=== PATIENT | male | born 1955 | race Caucasian/White ===

== ENCOUNTER → 2016-11-16 | Outpatient (CLI) | payer OTHER ==
[~2016-11-16] MED LIST: 'PARAFON FORTE500 M1 PO; ASPI-COR81 M1 PO; ATENOLOL25 MG PO; FEROSUL325 MG PO; FLEXERIL10 MG PO; HYDROCODONE BIT1 T11 PO; LISINOPRIL5 MG PO; MULTIPLE VITAMI1 CAP PO; NORCO 325 MG-51 TAB PO; NOVOLIN N100 U/ML SC; NOVOLIN R100 U/ML IJ; NOVOLIN R100 U/ML SC; PLAVIX75 MG PO; PRAVACHOL40 MG PO; TENORMIN25 MG PO
== END | disposition home or self-care (01) ==
LOC: US 02:31
DX: I73.9 Peripheral vascular disease, unspecified (principal); E11.9 Type 2 diabetes mellitus without complications; I10 Essential (primary) hypertension; F17.200 Nicotine dependence, unspecified, uncomplicated

== ENCOUNTER 2016-12-13 16:25 | Inpatient (IN) | payer OTHER ==
[~2016-12-13] VITALS: Ht 162.5 cm; Wt 57.3 kg
--- NOTE | ~2016-12-13 | ST ---
[place], [place] EXERCISE STRESS TEST REPORT [id number] UNIT #: [id number] ROOM: 403 DOCTOR: ALLYSSA MENDOZA MD BIRTHDATE: [birth year] DOS: LEXISCAN STRESS TEST Baseline cardiogram, sinus rhythm with ST depressions in the inferior and lateral leads, 0.4 mg of Lexiscan, duration of 10 seconds, 1 minute orthodoxy. No new EKG changes. No chest discomfort. Blood pressure and heart rate response was normal. Nuclear images will be reported separately. ALLYSSA MENDOZA MD CM:STRESS:EXERCISE STRESS TEST REPORT [id number] ALLYSSA MENDOZA MD
--- NOTE | ~2016-12-13 | CON ---
[place], [place] REPORT OF CONSULTATION NAME: JENNY SHAH UNIT #: [id number] ROOM: 403 DOCTOR: REJI LIEBERMANALLYSSA BIRTHDATE: [birth year] DOS: HISTORY OF PRESENT ILLNESS: The patient is very well known to me with severe peripheral arterial disease and has had a subtotal occlusion of the superficial femoral artery. An attempt was made to do the intervention, but unable to cross the lesion. The patient is scheduled for a fem-pop bypass surgery. Known history of bypass surgery also in the past. The patient came in with significant left-sided precordial chest discomfort, rated the pain as 6/10. The patient had some nonspecific ST-T abnormalities. Cardiac enzymes have been negative so far. The patient was asymptomatic during his last hospitalization admission. PAST MEDICAL HISTORY: Significant for severe coronary artery disease, peripheral arterial disease, diabetes mellitus, hypertension, and hyperlipidemia. PAST SURGICAL HISTORY: Bypass surgery, history of partial colectomy. Peripheral arterial disease with an attempted intervention. SOCIAL HISTORY: Current every day smoker, continues to smoke. FAMILY HISTORY: Positive for coronary artery disease. HOME MEDICATIONS: Atenolol, clopidogrel, insulin, lisinopril. REVIEW OF SYSTEMS: CONSTITUTIONAL: No fever, no chills. HEENT: No visual disturbances or hearing problems. CARDIOVASCULAR: As per HPI. GASTROINTESTINAL: No nausea, no vomiting. GENITOURINARY: No dysuria, hematuria. NEUROLOGICAL: No syncope. PHYSICAL EXAMINATION: VITAL SIGNS: Blood pressure is 130/70. He is in sinus rhythm. HEENT: Unremarkable. NECK: Supple, no JVD, no thyromegaly, no lymphadenopathy. LUNGS: Clear to auscultation and percussion. HEART: Heart sounds are regular. ABDOMEN: Soft, nontender. NEUROLOGIC: Stable. LABORATORY DATA: Electrolytes are normal. Creatinine is normal. Hemoglobin 11, hematocrit 35.4, platelet count are normal. IMPRESSION: The patient with bypass surgery, severe peripheral arterial disease, diabetes, hypertension, hyperlipidemia. EKG with ST-T abnormalities. Troponins have been negative, proceed with a Lexiscan Cardiolite stress test. RECOMMENDATIONS: Continue with other medication. Echo showed a real ejection [place], [place] REPORT OF CONSULTATION NAME: JENNY SHAH UNIT #: [id number] ROOM: 403 DOCTOR: REJI LIEBERMAN,ALLYSSA BIRTHDATE: [birth year] fraction of about 45% and we will follow up. ALLYSSA MENDOZA MD CM:CONSTR:REPORT OF CONSULTATION 0612 12/14/16 2128 interface
[~2016-12-13 16:25] MED LIST changes: -ASPI-COR81 M1 PO; +ASPIRIN CHEWABL81 MG PO; +NOVOLIN 70100 UNIT/1 SQ; -NOVOLIN R100 U/ML SC
[2016-12-13 16:33] VITALS: BP 109/60
[2016-12-13 17:09] LABS: BASO % 0.3 % (0.0-1.0); EOS % 0.2 % (1.0-4.0); HEMATOCRIT 35.4 % (42.0-52.0); HEMOGLOBIN 11.9 g/dl (14.0-18.0); LYMPH # 0.9 10*3/uL (1.3-4.4); LYMPH % 6.4 % (27.0-41.0); MEAN CELL VOLUME 96.7 fl (80.0-94.0); MEAN CORPUSCULAR HGB 32.5 pg (27.0-31.0); MEAN CORPUSCULAR HGB CONC 33.6 g/dl (33.0-37.0); MEAN PLATELET VOLUME 8.7 fl (9.6-12.3); MONO # 1.4 10*3/uL (0.1-1.0); MONO % 10.4 % (3.0-9.0); NEUT # 11.1 10*3/uL (2.3-7.9); NEUT % 82.2 % (47.0-73.0); PLATELET COUNT AUTOMATED 362 10*3/uL (130-400); RED BLOOD COUNT 3.66 10*6/uL (4.50-5.90); RED CELL DISTRI WIDTH 13.2 % (0-14.5); WHITE BLOOD COUNT 13.5 10*3/uL (4.8-10.8)
[2016-12-13 17:28] LABS: ALBUMIN 3.5 gm/dl (3.1-4.5); ALKALINE PHOSPHATASE 66 U/L (45-117); BUN 18 mg/dl (7-24); CHLORIDE 93 mmol/L (98-107); CREATININE 1.01 mg/dL (0.70-1.30); POTASSIUM 4.5 mmol/L (3.5-5.1); SGOT/AST 8 IU/L (3-35); SGPT/ALT 11 U/L (12-78); SODIUM 129 mmol/L (136-145); TOTAL PROTEIN 7.8 gm/dL (6.4-8.2); TROPONIN I 0.028 ng/ml (<0.045)
[2016-12-13 18:41] LABS: BILIRUBIN NEGATIVE (NEGATIVE); BLOOD 1+ (NEGATIVE); CLARITY SL CLOUDY (CLEAR); COLOR YELLOW (YELLOW); GLUCOSE 2+ (NEGATIVE); KETONE TRACE (NEGATIVE); LEUKO ESTERASE NEGATIVE (NEGATIVE); NITRITE NEGATIVE (NEGATIVE)
[2016-12-13 18:47] LABS: BACTERIA TRACE; WBC 0-2 wbc/hpf (0-5)
[2016-12-13 18:48] LABS: MUCOUS 2+
--- NOTE | 2016-12-13 19:05 | NUR ---
NURSE TO NURSE REPORT GIVEN TO THIS RN.
[2016-12-13 19:07] VITALS: BP 135/72
--- NOTE | 2016-12-13 19:09 | NUR ---
PT C/O RIGHT SIDE RIB PAIN.PT STATES HE HAS HX OF OLD RIB FX FROM FALL DOWN STEPS ABOUT 30 YEARS AGO.PT REQUESTING PAIN MEDICATION. NOTIFIED.
[2016-12-13 21:00] VITALS: BP 157/75
--- NOTE | 2016-12-13 21:00 | NUR ---
A 61, admitted to 4E, under the services of MICHELLE Lomeli DO with a diagnosis of CHEST PAIN. Chief complaint is SHORTNESS OF BREATH. Patient arrived via bed from ER. Monitor applied. Initial assessment completed. Vital signs taken and recorded. MICHELLE LOMELI DO notified of admission to the unit. Orders received. See assessment for past medical history, medications and allergies. Patient and/or family oriented to unit. visitation policy reviewed. Clothing/patient valuable form completed. NI DANIELLE
--- NOTE | 2016-12-13 21:40 | NUR ---
DR. NICHOLE NOTIFIED OF CONSULT FOR CHEST PAIN AND ABNORMAL EKG.
[2016-12-13] MEDS ORDERED: TOUJEO SOL300 UNIT/1 SQ (22:07)
--- NOTE | 2016-12-13 22:30 | NUR ---
DR. MARQUIS NOTIFIED OF MED REQ BEING UP TO DATE.
[2016-12-14] VITALS: BP 114/56
--- NOTE | 2016-12-14 06:32 | NUR ---
INFORMED SIGNED CONSENT OBTAINED FOR LEXISCAN STRESS TEST WITH DR NICHOLE. RESTING EKG NSR HR 67 BP 140/88. PULSE OX 96% DIMINSHED BREATH SOUNDS, LUNGS CLEAR. ST DEPRESSION II III AVF AND V5-V6. ONE MINUTE LEXISCAN PROTOCOL COMPLETED WITH PT RECEIVING LEXISCAN 0.4MG IV OVER 10 SECONDS. NO ARRHYTHMIAS, NONDIAGNOSTIC ST CHANGES. PT C/O LIGHTHEADEDNESS WITH INFUSION. LAST RECOVERY HR OF 80 BP 108/64. PT IN STABLE CONDITION, AWAITING NUCLEAR IMAGES.
[2016-12-14 08:00] VITALS: BP 116/61
[2016-12-14 08:04] LABS: BASO # 0.1 10*3/uL (0.0-0.1); BASO % 0.5 % (0.0-1.0); EOS # 0.1 10*3/uL (0.0-0.4); EOS % 0.8 % (1.0-4.0); HEMATOCRIT 35.7 % (42.0-52.0); HEMOGLOBIN 12.1 g/dl (14.0-18.0); LYMPH # 1.3 10*3/uL (1.3-4.4); LYMPH % 10.8 % (27.0-41.0); MEAN CELL VOLUME 98.9 fl (80.0-94.0); MEAN CORPUSCULAR HGB 33.5 pg (27.0-31.0); MEAN CORPUSCULAR HGB CONC 33.9 g/dl (33.0-37.0); MEAN PLATELET VOLUME 9.1 fl (9.6-12.3); MONO # 1.4 10*3/uL (0.1-1.0); MONO % 11.6 % (3.0-9.0); NEUT # 9.3 10*3/uL (2.3-7.9); NEUT % 75.7 % (47.0-73.0); PLATELET COUNT AUTOMATED 351 10*3/uL (130-400); RED BLOOD COUNT 3.61 10*6/uL (4.50-5.90); RED CELL DISTRI WIDTH 13.1 % (0-14.5); WHITE BLOOD COUNT 12.3 10*3/uL (4.8-10.8)
[2016-12-14 08:43] LABS: BUN 15 mg/dl (7-24); CHLORIDE 96 mmol/L (98-107); CREATININE 0.91 mg/dL (0.70-1.30); MAGNESIUM 1.6 mg/dL (1.5-2.1); PHOSPHOROUS 3.5 mg/dL (2.5-4.9); POTASSIUM 3.8 mmol/L (3.5-5.1); SODIUM 129 mmol/L (136-145)
--- NOTE | 2016-12-14 09:00 | NUR ---
Psychology Teacher in to talk to patient. Patient states lives at home with girlfrireelaine. There are few steps in the home. Physician: maria de jesus swartz [facility]acy: [facility] Home health services: none Patient's level of ADLs: MINIMAL ASSIST Patient has working utilities: all working DME: cane Follow-up physician's appointment after d/c: will be made by hospitalist nurse director upon discharge Does patient want to access PORTAL?: no Discharge plan discussed with patient, he lives at home with his girlfriend he uses a cane for ambulation, he states his girlfriend drives. patient states he will be going home when medically stable, discussed with him VNA and he refused, stated that his girlfriend helps with whatever he needs. BEENA CAREY
[2016-12-14 12:00] VITALS: BP 132/64
--- NOTE | 2016-12-14 12:42 | NUR ---
NORCO GIVEN FOR 710 JOINT PAIN
--- NOTE | 2016-12-14 14:06 | NUR ---
DISCHARGE INSTRUCTIONS GIVEN AND PT VERBALIZED UNDERSTANDING OF HOME CARE AND F/U LABS ON 12/18
--- NOTE | 2016-12-14 14:22 | NUR ---
DC TO HOME
== END 2016-12-14 14:06 | disposition home or self-care (01) | DRG 392 ==
LOC: ED 16:25 → EDHOLD 19:51 → 4E 19:51
PROVIDERS: Nurse Practitioner; Student in an Organized Health Care Education/Training Program; ADMIT Internal Medicine
PROC: 4A02XM4 Measurement of Cardiac Total Activity, External Approach (ICD-10-PCS; principal; 2016-12-14)
PROC: 3E073KZ Introduction of Other Diagnostic Substance into Coronary Artery, Percutaneous Approach (ICD-10-PCS; 2016-12-14)
DX: K21.9 Gastro-esophageal reflux disease without esophagitis (principal); E11.51 Type 2 diabetes mellitus with diabetic peripheral angiopathy without gangrene; E87.8 Other disorders of electrolyte and fluid balance, not elsewhere classified; E44.1 Mild protein-calorie malnutrition; E87.1 Hypo-osmolality and hyponatremia; I25.10 Atherosclerotic heart disease of native coronary artery without angina pectoris; F17.210 Nicotine dependence, cigarettes, uncomplicated; E11.65 Type 2 diabetes mellitus with hyperglycemia; D64.9 Anemia, unspecified; I10 Essential (primary) hypertension; D72.829 Elevated white blood cell count, unspecified; Z95.5 Presence of coronary angioplasty implant and graft; Z90.49 Acquired absence of other specified parts of digestive tract; Z82.49 Family history of ischemic heart disease and other diseases of the circulatory system; Z83.3 Family history of diabetes mellitus; Z91.041 Radiographic dye allergy status; Z79.82 Long term (current) use of aspirin; Z79.4 Long term (current) use of insulin; Z79.899 Other long term (current) drug therapy; Z95.9 Presence of cardiac and vascular implant and graft, unspecified; Z68.21 Body mass index [BMI] 21.0-21.9, adult

== ENCOUNTER → 2017-02-12 | Outpatient (CLI) | payer OTHER ==
[~2017-02-12] MED LIST changes: +TOUJEO SOL300 UNIT/1 SQ
[2017-02-12 17:08] LABS: BUN 17 mg/dl (7-24); CHLORIDE 94 mmol/L (98-107); CREATININE 1.23 mg/dL (0.70-1.30); SODIUM 126 mmol/L (136-145)
== END | disposition home or self-care (01) ==
LOC: LAB 16:23
DX: E87.1 Hypo-osmolality and hyponatremia (principal)

== ENCOUNTER → 2017-02-16 | Outpatient (CLI) | payer OTHER | END | disposition home or self-care (01) | LOC: LAB 14:32 | DX: E87.1 Hypo-osmolality and hyponatremia (principal) ==

== ENCOUNTER → 2017-02-28 | Outpatient (CLI) | payer OTHER ==
[2017-02-28 08:57] LABS: BUN 14 mg/dl (7-24); CHLORIDE 95 mmol/L (98-107); CREATININE 0.99 mg/dL (0.70-1.30); POTASSIUM 5.1 mmol/L (3.5-5.1); SODIUM 127 mmol/L (136-145)
== END | disposition home or self-care (01) ==
LOC: CT 02-22 09:00 → LAB 01:11 → CT 09:00
DX: E87.1 Hypo-osmolality and hyponatremia (principal); I25.10 Atherosclerotic heart disease of native coronary artery without angina pectoris; S22.43XA Multiple fractures of ribs, bilateral, initial encounter for closed fracture; S27.9XXA Injury of unspecified intrathoracic organ, initial encounter; X58.XXXA Exposure to other specified factors, initial encounter; Y93.9 Activity, unspecified; Y92.9 Unspecified place or not applicable; Y99.9 Unspecified external cause status; F17.200 Nicotine dependence, unspecified, uncomplicated; Z95.1 Presence of aortocoronary bypass graft

== ENCOUNTER 2019-01-09 11:13 | Inpatient (IN) | payer OTHER ==
[~2019-01-09] VITALS: Ht 160 cm; Wt 57.6 kg
[~2019-01-09 11:13] MED LIST changes: +BASAG SOL SC; -TOUJEO SOL300 UNIT/1 SQ
[2019-01-09 11:16] VITALS: BP 115/59
[2019-01-09] MEDS ORDERED: PLAVIX75 M1 PO (11:30)
[2019-01-09] MEDS ORDERED: FERROUS SULFAT325 MG PO (11:30)
[2019-01-09] MEDS ORDERED: NEURONTIN600 MG PO (11:30)
[2019-01-09] MEDS ORDERED: VITAMIN C500 M4 PO (11:31)
[2019-01-09 11:41] LABS: HEMATOCRIT 27.1 % (42.0-52.0); MEAN CELL VOLUME 77.2 fl (80.0-94.0); MEAN CORPUSCULAR HGB 22.8 pg (27.0-31.0); MEAN CORPUSCULAR HGB CONC 29.5 g/dl (33.0-37.0); MEAN PLATELET VOLUME 8.2 fl (9.6-12.3); PLATELET COUNT AUTOMATED 410 10*3/uL (130-400); RED BLOOD COUNT 3.51 10*6/uL (4.50-5.90); RED CELL DISTRI WIDTH 20.4 % (0-14.5); RETICULOCYTE % 1.49 % (0.50-2.50); WHITE BLOOD COUNT 7.6 10*3/uL (4.8-10.8)
[2019-01-09 11:52] LABS: ACT PARTIAL THROMBO TIME 24.6 SECONDS (20.0-32.1); INTERNATIONAL NORM RATIO 0.9 (2.0-3.5)
[2019-01-09 11:58] LABS: ALBUMIN 3.6 gm/dl (3.1-4.5); ALKALINE PHOSPHATASE 41 U/L (45-117); BUN 16 mg/dl (7-24); CHLORIDE 103 mmol/L (98-107); IRON 355 ug/dL (65-175); POTASSIUM 4.3 mmol/L (3.5-5.1); SGOT/AST 11 IU/L (3-35); SGPT/ALT 12 U/L (12-78); SODIUM 134 mmol/L (136-145); TOTAL IRON BINDING CAPACITY 375 ug/dl (250-450)
--- NOTE | 2019-01-09 12:00 | NUR ---
NOTIFIED BY LAB PTS GLUCOSE 35 DR KNIGHT NOTIFIED.
[2019-01-09 12:11] LABS: BASOPHILS 3 % (0-1); MICROCYTOSIS SLIGHT; PLATELET SUFFICIENCY HIGH (NORMAL); POLYCHROMASIA SLIGHT; TARGET CELLS FEW; TOTAL CELLS COUNTED 100 #CELLS
[2019-01-09 12:12] LABS: SCHISTOCYTES FEW
[2019-01-09 12:30] VITALS: BP 114/60
[2019-01-09 13:45] VITALS: BP 114/62
[2019-01-09 15:00] VITALS: BP 114/62
[2019-01-09 16:00] VITALS: BP 159/44
--- NOTE | 2019-01-09 16:00 | NUR ---
DR. BARKER NOTIFIED OF CONSULT. NEW ORDERS GIVEN.
--- NOTE | 2019-01-09 16:16 | NUR ---
[facility] , under the services of AURE Elliott DO with a diagnosis of ANEMIA. Chief complaint is DENIES COMPLAINTS. Patient arrived via bed from ER. Monitor applied. Initial assessment completed. Vital signs taken and recorded. AURE ELLIOTT DO notified of admission to the unit. Orders received. See assessment for past medical history, medications and allergies. Patient and/or family oriented to unit. [facility] visitation policy reviewed. Clothing/patient valuable form completed. EL QUINTEROS
--- NOTE | 2019-01-09 19:30 | NUR ---
24 HOUR CHART CHECK COMPLETED
[2019-01-09 20:00] VITALS: BP 182/80
--- NOTE | 2019-01-09 20:24 | NUR ---
PATIENT ASSESSMENT COMPLETED AT THIS TIME, PATIENT ALERT AND ORIENTED X3, DENIES ANY PAIN, SHORTNESS OF BREATH OR CHEST PAIN. PATIENT STATED THAT HE FELT LIKE HIS BLOOD SUGAR MIGHT BE LOW, BGL 56 AT THIS TIME. PATIENT GIVEN 2 ORANGE JUICE, QASIM CRACKERS 2 PACKETS, 2 PEANUT BUTTERS, 2 JELLIES, AND A TURKEY SANDWICH. WHICH THE PATIENT BEGAN EATING. HE STATED THAT THIS HAPPENS AT HOME AND HE SOMETIMES DOESN'T TAKE HIS INSULIN AT NIGHT. PATIENT ASSESSED AND WAS FOUND TO BE ASYMPTOMATIC WITH HIS BGL AT THIS TIME. CALL LIGHT WITHIN REACH. PATIENT ADVISED TO CALL FOR HELP BEFORE GETTING UP UNTIL HIS BGL WAS REASSESSED.
[2019-01-09 20:55] LABS: BASO # 0.1 10*3/uL (0.0-0.1); BASO % 1.2 % (0.0-1.0); EOS # 0.2 10*3/uL (0.0-0.4); EOS % 2.5 % (1.0-4.0); HEMATOCRIT 27.1 % (42.0-52.0); HEMOGLOBIN 7.9 g/dl (14.0-18.0); LYMPH # 1.7 10*3/uL (1.3-4.4); LYMPH % 20.2 % (27.0-41.0); MEAN CELL VOLUME 77.7 fl (80.0-94.0); MEAN CORPUSCULAR HGB 22.6 pg (27.0-31.0); MEAN CORPUSCULAR HGB CONC 29.2 g/dl (33.0-37.0); MEAN PLATELET VOLUME 9.1 fl (9.6-12.3); MONO # 1.4 10*3/uL (0.1-1.0); MONO % 16.4 % (3.0-9.0); NEUT % 59.5 % (47.0-73.0); PLATELET COUNT AUTOMATED 464 10*3/uL (130-400); RED BLOOD COUNT 3.49 10*6/uL (4.50-5.90); RED CELL DISTRI WIDTH 20.6 % (0-14.5); WHITE BLOOD COUNT 8.4 10*3/uL (4.8-10.8)
--- NOTE | 2019-01-09 21:30 | NUR ---
BGL REASSESSED AT THIS TIME AND WAS 79. PATIENT HAD EATEN ALL OF THE PREVIOUSLY DOCUMENTED FOOD AND STATED THAT HE WAS FEELING FINE AND THAT HIS BGL WOULD CONTINUE TO INCREASE AND THAT HE HAD SAVED HIS APPLESAUCE FOR LATER. CALL LIGHT WITHIN REACH, WILL CONTINUE TO MONTIOR.
[2019-01-10] VITALS (8 sets, daily range): BP systolic 118–181; BP diastolic 45–88
[2019-01-10 06:30] LABS: BASO # 0.1 10*3/uL (0.0-0.1); BASO % 1.4 % (0.0-1.0); EOS # 0.3 10*3/uL (0.0-0.4); EOS % 4.5 % (1.0-4.0); HEMATOCRIT 23.7 % (42.0-52.0); LYMPH # 1.2 10*3/uL (1.3-4.4); LYMPH % 21.7 % (27.0-41.0); MEAN CELL VOLUME 77.5 fl (80.0-94.0); MEAN CORPUSCULAR HGB 22.5 pg (27.0-31.0); MEAN CORPUSCULAR HGB CONC 29.1 g/dl (33.0-37.0); MEAN PLATELET VOLUME 8.8 fl (9.6-12.3); MONO # 0.8 10*3/uL (0.1-1.0); MONO % 14.1 % (3.0-9.0); NEUT # 3.2 10*3/uL (2.3-7.9); NEUT % 58.1 % (47.0-73.0); PLATELET COUNT AUTOMATED 375 10*3/uL (130-400); RED BLOOD COUNT 3.06 10*6/uL (4.50-5.90); RED CELL DISTRI WIDTH 20.6 % (0-14.5); WHITE BLOOD COUNT 5.5 10*3/uL (4.8-10.8)
--- NOTE | 2019-01-10 06:31 | NUR ---
LIDIA FROM LAB CALLED TO ADVISED OF CRITICAL LAB HEMOGLOBIN 6.9
[2019-01-10 06:33] LABS: HEMOGLOBIN 6.9 g/dl (14.0-18.0)
--- NOTE | 2019-01-10 06:33 | NUR ---
DR. IWLL NOTIFIED OF CRITICAL LAB HEMOGOLOBIN 6.9
[2019-01-10 06:39] LABS: ALBUMIN 3.3 gm/dl (3.1-4.5); BUN 16 mg/dl (7-24); CHLORIDE 103 mmol/L (98-107); CHOLESTEROL 119 mg/dL (<200); CREATININE 0.87 mg/dL (0.70-1.30); HDL CHOLESTEROL 77 mg/dl (40-60); LDL CHOLESTEROL 33 mg/dL (9-159); PHOSPHOROUS 2.7 mg/dL (2.5-4.9); POTASSIUM 4.6 mmol/L (3.5-5.1); SGOT/AST 10 IU/L (3-35); SGPT/ALT 13 U/L (12-78); SODIUM 133 mmol/L (136-145); TOTAL PROTEIN 6.3 gm/dL (6.4-8.2); TRIGLYCERIDES 45 mg/dl (<150); VLDL CHOLESTEROL 9 mg/dL (6-40)
[2019-01-10 06:45] LABS: ALKALINE PHOSPHATASE 36 U/L (45-117); FREE T4 0.84 ng/dl (0.76-1.46)
[2019-01-10 07:12] LABS: ACT PARTIAL THROMBO TIME 25.6 SECONDS (20.0-32.1); BASOPHILS 1 % (0-1); INTERNATIONAL NORM RATIO 0.9 (2.0-3.5); PLATELET SUFFICIENCY NORMAL (NORMAL); SCHISTOCYTES FEW; TOTAL CELLS COUNTED 100 #CELLS
[2019-01-10 08:06] LABS: VITAMIN D, 25-HYDROXY 12.2 ng/mL (30-100)
--- NOTE | 2019-01-10 10:38 | NUR ---
10:00 AM MEDS TO BE GIVEN AT A LATER TIME, PT NPO AT THIS TIME.
--- NOTE | 2019-01-10 12:54 | NUR ---
[employer] in to talk to patient. Patient states lives at HOME with CAREGIVER. There are OUTSIDE steps in the home. Physician: YAYA LINDQUIST [facility]: [facility] Home health services: NONE Patient's level of ADLs: MINIMAL ASSIST Patient has working utilities: YES DME: CANE Follow-up physician's appointment after d/c: WILL BE MADE BY HOSPITALIST NURSE DIRECTOR ON DISCHARGE Does patient want to access PORTAL?: NO Discharge plan PT LIVES AT HOME WITH HIS CAREGIVER. STATES HE IS ABLE TO DO HIS ADLS AND AMBULATES WITH A CANE. DENIES HE WILL HAVE ANY NEEDS ON DISCHARGE AND PLANS TO RETURN HOME WHEN MEDICALLY STABLE. WILL CONTINUE TO FOLLOW. WILL HAVE A RIDE HOME PER PT.. MARY CHUN
--- NOTE | 2019-01-10 16:15 | NUR ---
OFF THE FLOOR TO SURGERY.
[2019-01-10 18:18] LABS: HEMATOCRIT 30.5 % (42.0-52.0); HEMOGLOBIN 9.2 g/dl (14.0-18.0)
[2019-01-11] VITALS: BP 145/56
[2019-01-11 00:52] LABS: HEMATOCRIT 26.6 % (42.0-52.0)
[2019-01-11 06:33] LABS: BASO # 0.1 10*3/uL (0.0-0.1); EOS # 0.2 10*3/uL (0.0-0.4); EOS % 2.5 % (1.0-4.0); HEMATOCRIT 28.2 % (42.0-52.0); HEMOGLOBIN 8.3 g/dl (14.0-18.0); LYMPH # 1.1 10*3/uL (1.3-4.4); LYMPH % 18.2 % (27.0-41.0); MEAN CELL VOLUME 77.9 fl (80.0-94.0); MEAN CORPUSCULAR HGB 22.9 pg (27.0-31.0); MEAN CORPUSCULAR HGB CONC 29.4 g/dl (33.0-37.0); MEAN PLATELET VOLUME 8.9 fl (9.6-12.3); MONO # 0.8 10*3/uL (0.1-1.0); MONO % 12.9 % (3.0-9.0); NEUT # 4.1 10*3/uL (2.3-7.9); NEUT % 65.2 % (47.0-73.0); PLATELET COUNT AUTOMATED 370 10*3/uL (130-400); RED BLOOD COUNT 3.62 10*6/uL (4.50-5.90); RED CELL DISTRI WIDTH 20.6 % (0-14.5); WHITE BLOOD COUNT 6.3 10*3/uL (4.8-10.8)
[2019-01-11 08:00] VITALS: BP 151/56
[2019-01-11 12:00] VITALS: BP 150/54
[2019-01-11 16:00] VITALS: BP 165/63
--- NOTE | 2019-01-11 16:00 | NUR ---
RESTING IN BED WITH EYES CLOSED; AROUSES EASILY FOR ASSESSMENT. SKIN WARM & DRY. HEP LOCK INTACT TO LEFT ANTECUBITAL; SITE ASYMPTOMATIC. LUNGS DIMINISHED; NO COUGH NOTED AT THIS TIME. PULSE OX 100% ON ISAI AIR. PT. VOICES NO C/O AT THIS TIME; NO DISTRESS NOTED. CALL LIGHT WITHIN REACH.
--- NOTE | 2019-01-11 16:30 | NUR ---
BLOOD SUGAR 259; COVERAGE PER EMAR.
[2019-01-11 19:23] LABS: HEMATOCRIT 31.5 % (42.0-52.0); HEMOGLOBIN 9.3 g/dl (14.0-18.0)
--- NOTE | 2019-01-11 19:35 | NUR ---
DR WILL STATES OK FOR PT TO TAKE OFF MONITOR TO SHOWER.
[2019-01-11 20:00] VITALS: BP 160/76
--- NOTE | 2019-01-11 22:17 | NUR ---
TYLENOL PROVIDED PER PT C/O CHRONIC BACK PAIN. CALL LIGHT IN REACH.
[2019-01-12] VITALS: BP 158/76
[2019-01-12 06:27] LABS: BASO # 0.1 10*3/uL (0.0-0.1); BASO % 1.4 % (0.0-1.0); EOS # 0.4 10*3/uL (0.0-0.4); EOS % 5.1 % (1.0-4.0); HEMATOCRIT 30.2 % (42.0-52.0); HEMOGLOBIN 8.9 g/dl (14.0-18.0); LYMPH # 1.3 10*3/uL (1.3-4.4); LYMPH % 18.8 % (27.0-41.0); MEAN CELL VOLUME 79.5 fl (80.0-94.0); MEAN CORPUSCULAR HGB 23.4 pg (27.0-31.0); MEAN CORPUSCULAR HGB CONC 29.5 g/dl (33.0-37.0); MEAN PLATELET VOLUME 8.9 fl (9.6-12.3); MONO # 0.9 10*3/uL (0.1-1.0); MONO % 12.4 % (3.0-9.0); NEUT # 4.4 10*3/uL (2.3-7.9); PLATELET COUNT AUTOMATED 374 10*3/uL (130-400); RED CELL DISTRI WIDTH 21.4 % (0-14.5); WHITE BLOOD COUNT 7.1 10*3/uL (4.8-10.8)
[2019-01-12 08:00] VITALS: BP 144/63
[2019-01-12 12:00] VITALS: BP 148/72
[2019-01-12 16:00] VITALS: BP 147/61
--- NOTE | 2019-01-12 19:45 | NUR ---
PATIENT SITTING UP IN BED WATCHING TV. NO ACUTE DISTRESS NOTED. BED LOCKED IN LOWEST POSITION. CALL LIGHT WITHIN REACH. NO OTHER NEEDS AT THIS TIME.
[2019-01-12 20:00] VITALS: BP 150/67
--- NOTE | 2019-01-12 21:08 | NUR ---
NOTIFIED DR. WILL OF RHYTHM CHANGE IN PATIENT'S TELEMTRY STRIP. STAT EKG ORDERED THAT SHOWED ST ELEVATION. DR. WILL STATED HE WILL TAKE A LOOK. NO NEW ORDERS GIVEN.
[2019-01-13] VITALS: BP 151/65
--- NOTE | 2019-01-13 00:59 | NUR ---
PATIENT SLEEPING IN BED. NO DISTRESS NOTED. BED LOCKED IN LOWEST POSITION. CALL LIGHT WITHIN REACH.
--- NOTE | 2019-01-13 01:29 | NUR ---
24 HR chart check completed.
--- NOTE | 2019-01-13 05:35 | NUR ---
DR. WILL NOTIFIED OF BLOOD SUGAR BEING 490 WITH 22 UNITS OF HUMALOG ORDERED. NO NEW ORDERS.
--- NOTE | 2019-01-13 07:10 | NUR ---
PT AWAKE. BEDSIDE REPORT RECEIVED. NO PT QUESTIONS/CONCERNS AT THIS ITME
[2019-01-13 08:00] VITALS: BP 130/64
[2019-01-13 08:04] LABS: BASO # 0.1 10*3/uL (0.0-0.1); EOS # 0.2 10*3/uL (0.0-0.4); HEMATOCRIT 30.5 % (42.0-52.0); LYMPH # 0.9 10*3/uL (1.3-4.4); LYMPH % 12.8 % (27.0-41.0); MEAN CELL VOLUME 79.4 fl (80.0-94.0); MEAN CORPUSCULAR HGB 23.4 pg (27.0-31.0); MEAN CORPUSCULAR HGB CONC 29.5 g/dl (33.0-37.0); MEAN PLATELET VOLUME 8.4 fl (9.6-12.3); MONO # 0.8 10*3/uL (0.1-1.0); NEUT # 5.2 10*3/uL (2.3-7.9); NEUT % 71.8 % (47.0-73.0); PLATELET COUNT AUTOMATED 336 10*3/uL (130-400); RED BLOOD COUNT 3.84 10*6/uL (4.50-5.90); RED CELL DISTRI WIDTH 21.8 % (0-14.5); WHITE BLOOD COUNT 7.3 10*3/uL (4.8-10.8)
[2019-01-13 08:19] LABS: ALBUMIN 3.3 gm/dl (3.1-4.5); ALKALINE PHOSPHATASE 38 U/L (45-117); BUN 23 mg/dl (7-24); CHLORIDE 103 mmol/L (98-107); POTASSIUM 3.6 mmol/L (3.5-5.1); SGOT/AST 7 IU/L (3-35); SGPT/ALT 13 U/L (12-78); SODIUM 133 mmol/L (136-145); TOTAL PROTEIN 6.4 gm/dL (6.4-8.2)
--- NOTE | 2019-01-13 09:57 | NUR ---
PT AWAKE. ASSESSMNET COMPLETE. ROUTINE MEDICATIONS WELL TOLERATED. BED LOW CALL LOPEZ IN REACH
--- NOTE | 2019-01-13 10:29 | NUR ---
TRIED TO CALL DR DIAZ REGARDING PTS DIET. WAITING RAD TECHNOLOGIST BACK
--- NOTE | 2019-01-13 11:42 | NUR ---
PER DR DIAZ PT CAN HAVE A REGULAR DIET
[2019-01-13 12:00] VITALS: BP 149/66
--- NOTE | 2019-01-13 14:08 | NUR ---
PT CONTINUES TO DENY NEEDS AT HOME. STATES HE HAS A CAREGIVER AND WILL RETURN HOME WITH CAREGIVER. WILL CONTINUE TO FOLLOW.
[2019-01-13 16:00] VITALS: BP 136/62
[2019-01-13 20:00] VITALS: BP 141/60
--- NOTE | 2019-01-13 20:30 | NUR ---
PATIENT SITTING IN CHAIR WATCHING TV. BLOOD SUGAR 162. PATIENT GIVEN 3 UNITS OF HUMALOG PER ORDER IN RIGHT ARM. NO OTHER NEEDS AT THIS TIME. CALL LIGHT WITHIN REACH.
[2019-01-14] VITALS: BP 146/63
--- NOTE | 2019-01-14 00:48 | NUR ---
24 HR chart check completed.
--- NOTE | 2019-01-14 02:05 | NUR ---
PATIENT SLEEPING IN BED. RESPIRATIONS EVEN AND UNLABORED. NO DISTRESS NOTED. CALL LIGHT WITHIN REACH.
[2019-01-14 08:00] VITALS: BP 140/70
[2019-01-14] MEDS ORDERED: PEPCID40 MG PO (10:55)
[2019-01-14] MEDS ORDERED: Carafate1 GM/10 ML PO (10:55)
[2019-01-14] MEDS ORDERED: Vitamin D PO (10:55)
--- NOTE | 2019-01-14 13:03 | NUR ---
PT IS BEING DISCHARGE TODAY. CONTINUES TO DENY NEEDS AT HOME.
--- NOTE | 2019-01-14 13:30 | NUR ---
Discharge instructions reviewed with patient/family. Patient receptive and verbalizes understanding. Follow-up care arranged. Written instructions given to patient/family. NALLELY ARMSTRONG
--- NOTE | 2019-01-15 15:43 | NUR ---
PER AMOS DR MIKE WILL CALL DR AGEE TOMORROW 01/16 AT 0830 TO COMPLETE PEER TO PEER WITH DR AGEE. DR LAWSON'S CELL NUMBER AND [facility] NUMBER PROVIDED. PATRIA CATHODIC PROTECTION TECHNICIAN NOTIFIED OF DATE AND TIME OF PEER TO PEER.
== END 2019-01-14 13:10 | disposition home or self-care (01) | DRG 241 ==
LOC: ED 11:13 → EDHOLD 14:57 → 5E 14:57
PROVIDERS: Emergency Medicine; Internal Medicine; Registered Nurse; ADMIT Family Medicine
PROC: 0DB68ZX Excision of Stomach, Via Natural or Artificial Opening Endoscopic, Diagnostic (ICD-10-PCS; principal; 2019-01-10)
PROC: 30233N1 Transfusion of Nonautologous Red Blood Cells into Peripheral Vein, Percutaneous Approach (ICD-10-PCS; 2019-01-10)
DX: K29.71 Gastritis, unspecified, with bleeding (principal); D50.0 Iron deficiency anemia secondary to blood loss (chronic); E87.1 Hypo-osmolality and hyponatremia; E11.649 Type 2 diabetes mellitus with hypoglycemia without coma; D69.6 Thrombocytopenia, unspecified; E11.51 Type 2 diabetes mellitus with diabetic peripheral angiopathy without gangrene; I25.810 Atherosclerosis of coronary artery bypass graft(s) without angina pectoris; D72.810 Lymphocytopenia; I10 Essential (primary) hypertension; Z91.041 Radiographic dye allergy status; Z79.82 Long term (current) use of aspirin; Z79.899 Other long term (current) drug therapy; Z95.1 Presence of aortocoronary bypass graft; Z95.5 Presence of coronary angioplasty implant and graft; Z82.49 Family history of ischemic heart disease and other diseases of the circulatory system; Z83.3 Family history of diabetes mellitus; Z82.3 Family history of stroke; Z90.49 Acquired absence of other specified parts of digestive tract; Z98.62 Peripheral vascular angioplasty status

== ENCOUNTER → 2019-10-09 | Emergency (ER) | payer OTHER ==
[~2019-10-09] VITALS: Ht 162.5 cm; Wt 60.8 kg
[~2019-10-09] MED LIST changes: +Carafate1 GM/10 ML PO; +FERROUS SULFAT325 MG PO; +NEURONTIN600 MG PO; +PEPCID40 MG PO; +PLAVIX75 M1 PO; +VITAMIN C500 M4 PO; +Vitamin D PO
[2019-10-09 15:09] LABS: BASO # 0.1 10*3/uL (0.0-0.1); BASO % 0.6 % (0.0-1.0); EOS % 0.3 % (1.0-4.0); HEMATOCRIT 24.4 % (42.0-52.0); LYMPH # 1.1 10*3/uL (1.3-4.4); MEAN CELL VOLUME 104.7 fl (80.0-94.0); MEAN CORPUSCULAR HGB 32.6 pg (27.0-31.0); MEAN CORPUSCULAR HGB CONC 31.1 g/dl (33.0-37.0); MEAN PLATELET VOLUME 9.5 fl (9.6-12.3); MONO # 0.8 10*3/uL (0.1-1.0); MONO % 9.4 % (3.0-9.0); NEUT # 6.8 10*3/uL (2.3-7.9); NEUT % 77.4 % (47.0-73.0); PLATELET COUNT AUTOMATED 409 10*3/uL (130-400); RED BLOOD COUNT 2.33 10*6/uL (4.50-5.90); WHITE BLOOD COUNT 8.8 10*3/uL (4.8-10.8)
[2019-10-09 15:19] LABS: ACT PARTIAL THROMBO TIME 26.1 SECONDS (20.0-32.1)
[2019-10-09 15:27] LABS: ALBUMIN 3.4 gm/dl (3.1-4.5); ALKALINE PHOSPHATASE 65 U/L (45-117); BUN 29 mg/dl (7-24); CHLORIDE 108 mmol/L (98-107); CREATININE 1.34 mg/dL (0.70-1.30); POTASSIUM 4.8 mmol/L (3.5-5.1); SGOT/AST 12 IU/L (3-35); SGPT/ALT 21 U/L (12-78); SODIUM 136 mmol/L (136-145); TOTAL PROTEIN 6.6 gm/dL (6.4-8.2)
[2019-10-09 15:32] LABS: TROPONIN I 0.097 ng/ml (<0.045)
[2019-10-09 15:49] LABS: ETHYL ALCOHOL < 3.0 mg/dl (<3)
[2019-10-09 17:43] LABS: HEMATOCRIT 23.1 % (42.0-52.0)
[2019-10-09 17:58] VITALS: BP 156/63
== END ==
LOC: ED 14:49
PROVIDERS: Emergency Medicine
DX: I44.1 Atrioventricular block, second degree (principal); R18.8 Other ascites; D64.9 Anemia, unspecified; E16.2 Hypoglycemia, unspecified; K92.2 Gastrointestinal hemorrhage, unspecified; I11.0 Hypertensive heart disease with heart failure; I50.9 Heart failure, unspecified; J90 Pleural effusion, not elsewhere classified; I25.10 Atherosclerotic heart disease of native coronary artery without angina pectoris; E11.9 Type 2 diabetes mellitus without complications; F17.210 Nicotine dependence, cigarettes, uncomplicated; Z91.041 Radiographic dye allergy status; Z79.82 Long term (current) use of aspirin; Z79.899 Other long term (current) drug therapy; Z79.4 Long term (current) use of insulin; Z20.828 Contact with and (suspected) exposure to other viral communicable diseases

== ENCOUNTER → 2021-05-11 | Day surgery (SDC) | payer OTHER ==
[2021-05-06 14:15] VITALS: BP 184/90
[2021-05-11] VITALS (7 sets, daily range): BP systolic 105–177; BP diastolic 42–76
[~2021-05-11] MED LIST changes: +DOXYCYCLINE HY100 M3 PO; +LANTUS SOL100 UNIT/1 SC; +LASIX40 MG PO; +PROTONIX40 MG PO; +TYLENOL325 M1 PO; +VITAMIN B12-FO1 EACH PO
[2021-05-12 09:07] LABS: ACID FAST SPEC PROCESSING Tissue Grinding (.)
== END | disposition home or self-care (01) ==
LOC: SDC 05-06 14:00
PROVIDERS: ATTEND Podiatrist
DX: M86.672 Other chronic osteomyelitis, left ankle and foot (principal); M87.875 Other osteonecrosis, left foot; I10 Essential (primary) hypertension; E10.9 Type 1 diabetes mellitus without complications; I25.10 Atherosclerotic heart disease of native coronary artery without angina pectoris; Z95.1 Presence of aortocoronary bypass graft; Z95.5 Presence of coronary angioplasty implant and graft; Z79.899 Other long term (current) drug therapy

== ENCOUNTER 2021-09-26 02:29 | Inpatient (IN) | payer OTHER ==
[~2021-09-26] VITALS: Ht 162.6 cm; Wt 61.2 kg
[~2021-09-26 02:29] MED LIST changes: -LISINOPRIL5 MG PO; +NOVOLIN R100 UNIT/1 SQ; +PRAVASTATIN SOD40 MG PO; +VITAMIN D350 MCG PO; +ZESTRIL40 MG PO
[2021-09-26 02:39] VITALS: BP 170/71
[2021-09-26 03:54] LABS: BASO # 0.1 10*3/uL (0.0-0.1); BASO % 0.7 % (0.0-1.0); EOS # 0.2 10*3/uL (0.0-0.4); EOS % 2.5 % (1.0-4.0); HEMATOCRIT 25.7 % (42.0-52.0); LYMPH # 0.7 10*3/uL (1.3-4.4); LYMPH % 8.3 % (27.0-41.0); MEAN CELL VOLUME 96.6 fl (80.0-94.0); MEAN CORPUSCULAR HGB 28.9 pg (27.0-31.0); MEAN PLATELET VOLUME 9.2 fl (9.6-12.3); MONO % 12.1 % (3.0-9.0); NEUT # 6.3 10*3/uL (2.3-7.9); NEUT % 75.9 % (47.0-73.0); PLATELET COUNT AUTOMATED 428 10*3/uL (130-400); RED BLOOD COUNT 2.66 10*6/uL (4.50-5.90); RED CELL DISTRI WIDTH 14.4 % (0-14.5); WHITE BLOOD COUNT 8.3 10*3/uL (4.8-10.8)
[2021-09-26 04:10] LABS: ALKALINE PHOSPHATASE 50 U/L (45-117); BUN 31 mg/dl (7-24); CHLORIDE 106 mmol/L (98-107); CREATININE 1.21 mg/dL (0.70-1.30); POTASSIUM 4.6 mmol/L (3.5-5.1); SGOT/AST 9 IU/L (3-35); SGPT/ALT 8 U/L (12-78); SODIUM 137 mmol/L (136-145); TOTAL PROTEIN 6.2 gm/dL (6.4-8.2)
[2021-09-26 06:55] LABS: ACT PARTIAL THROMBO TIME 31.6 SECONDS (20.0-32.1)
[2021-09-26] MEDS ORDERED: HUMULIN R100 UNIT/1 IJ (09:39)
[2021-09-26] MEDS ORDERED: [UNRECOGNIZED DRUG - SUPPLY] MC (09:43)
[2021-09-26 13:00] VITALS: BP 124/68
[2021-09-26 16:00] VITALS: BP 160/81
[2021-09-26 20:00] VITALS: BP 165/68
[2021-09-27] VITALS: BP 141/69
[2021-09-27 08:00] VITALS: BP 152/54
[2021-09-27 12:00] VITALS: BP 149/89
[2021-09-27 16:00] VITALS: BP 145/74
[2021-09-27 20:00] VITALS: BP 135/51
[2021-09-28] VITALS (10 sets, daily range): BP systolic 127–162; BP diastolic 61–81
[2021-09-28 06:53] LABS: BUN 16 mg/dl (7-24); CHLORIDE 107 mmol/L (98-107); CREATININE 0.84 mg/dL (0.70-1.30); POTASSIUM 4.2 mmol/L (3.5-5.1); SODIUM 139 mmol/L (136-145)
[2021-09-28 07:00] LABS: BASO # 0.1 10*3/uL (0.0-0.1); EOS # 0.3 10*3/uL (0.0-0.4); HEMATOCRIT 25.3 % (42.0-52.0); LYMPH # 0.9 10*3/uL (1.3-4.4); LYMPH % 13.6 % (27.0-41.0); MEAN CELL VOLUME 96.2 fl (80.0-94.0); MEAN CORPUSCULAR HGB 28.9 pg (27.0-31.0); MEAN PLATELET VOLUME 9.5 fl (9.6-12.3); MONO # 0.7 10*3/uL (0.1-1.0); MONO % 11.6 % (3.0-9.0); NEUT # 4.3 10*3/uL (2.3-7.9); NEUT % 69.5 % (47.0-73.0); PLATELET COUNT AUTOMATED 437 10*3/uL (130-400); RED BLOOD COUNT 2.63 10*6/uL (4.50-5.90); RED CELL DISTRI WIDTH 14.3 % (0-14.5); WHITE BLOOD COUNT 6.2 10*3/uL (4.8-10.8)
[2021-09-29] VITALS: BP 155/83
[2021-09-29 08:00] VITALS: BP 132/61
[2021-09-29 10:16] LABS: BASO # 0.1 10*3/uL (0.0-0.1); BASO % 0.6 % (0.0-1.0); EOS # 0.3 10*3/uL (0.0-0.4); EOS % 2.7 % (1.0-4.0); HEMATOCRIT 25.8 % (42.0-52.0); LYMPH # 0.7 10*3/uL (1.3-4.4); LYMPH % 6.4 % (27.0-41.0); MEAN CELL VOLUME 97.4 fl (80.0-94.0); MEAN CORPUSCULAR HGB 29.4 pg (27.0-31.0); MEAN CORPUSCULAR HGB CONC 30.2 g/dl (33.0-37.0); MEAN PLATELET VOLUME 9.2 fl (9.6-12.3); MONO % 9.7 % (3.0-9.0); NEUT # 8.5 10*3/uL (2.3-7.9); NEUT % 80.3 % (47.0-73.0); PLATELET COUNT AUTOMATED 415 10*3/uL (130-400); RED BLOOD COUNT 2.65 10*6/uL (4.50-5.90); RED CELL DISTRI WIDTH 14.3 % (0-14.5); WHITE BLOOD COUNT 10.6 10*3/uL (4.8-10.8)
[2021-09-29 10:30] LABS: BUN 16 mg/dl (7-24); CHLORIDE 99 mmol/L (98-107); CREATININE 1.07 mg/dL (0.70-1.30); POTASSIUM 4.5 mmol/L (3.5-5.1); SODIUM 133 mmol/L (136-145)
[2021-09-29 12:00] VITALS: BP 161/65
[2021-09-29 13:06] LABS: ACID FAST SPEC PROCESSING Tissue Grinding (.)
[2021-09-29 16:00] VITALS: BP 147/79
[2021-09-29 20:00] VITALS: BP 145/74
[2021-09-30] VITALS: BP 133/59
[2021-09-30 06:20] LABS: BASO # 0.1 10*3/uL (0.0-0.1); BASO % 0.7 % (0.0-1.0); EOS # 0.4 10*3/uL (0.0-0.4); EOS % 4.4 % (1.0-4.0); HEMATOCRIT 24.2 % (42.0-52.0); LYMPH # 0.8 10*3/uL (1.3-4.4); LYMPH % 8.5 % (27.0-41.0); MEAN CORPUSCULAR HGB 29.4 pg (27.0-31.0); MEAN CORPUSCULAR HGB CONC 30.6 g/dl (33.0-37.0); MEAN PLATELET VOLUME 9.8 fl (9.6-12.3); MONO # 1.3 10*3/uL (0.1-1.0); MONO % 12.8 % (3.0-9.0); NEUT # 7.2 10*3/uL (2.3-7.9); NEUT % 73.3 % (47.0-73.0); PLATELET COUNT AUTOMATED 425 10*3/uL (130-400); RED BLOOD COUNT 2.52 10*6/uL (4.50-5.90); RED CELL DISTRI WIDTH 14.1 % (0-14.5); WHITE BLOOD COUNT 9.8 10*3/uL (4.8-10.8)
[2021-09-30 06:30] LABS: BUN 15 mg/dl (7-24); CHLORIDE 104 mmol/L (98-107); CREATININE 0.86 mg/dL (0.70-1.30); POTASSIUM 3.8 mmol/L (3.5-5.1); SODIUM 137 mmol/L (136-145)
[2021-09-30 08:00] VITALS: BP 121/84
[2021-09-30 12:00] VITALS: BP 147/66
[2021-09-30 16:00] VITALS: BP 152/68
[2021-09-30 20:00] VITALS: BP 114/52
[2021-10-01] VITALS (12 sets, daily range): BP systolic 115–161; BP diastolic 51–92
[2021-10-01 06:16] LABS: HEMATOCRIT 21.5 % (42.0-52.0); MEAN CELL VOLUME 93.5 fl (80.0-94.0); MEAN CORPUSCULAR HGB 28.7 pg (27.0-31.0); MEAN CORPUSCULAR HGB CONC 30.7 g/dl (33.0-37.0); MEAN PLATELET VOLUME 9.8 fl (9.6-12.3); PLATELET COUNT AUTOMATED 395 10*3/uL (130-400); WHITE BLOOD COUNT 6.7 10*3/uL (4.8-10.8)
[2021-10-01 06:18] LABS: MANUAL DIFF REFLEX YES
[2021-10-01 06:23] LABS: BUN 17 mg/dl (7-24); CHLORIDE 103 mmol/L (98-107); POTASSIUM 3.9 mmol/L (3.5-5.1); SODIUM 135 mmol/L (136-145)
[2021-10-01 06:24] LABS: CREATININE 0.98 mg/dL (0.70-1.30)
[2021-10-01 07:08] LABS: BASOPHILS 1 % (0-1); PLATELET SUFFICIENCY NORMAL (NORMAL); ROULEAUX SLIGHT; TARGET CELLS FEW; TOTAL CELLS COUNTED 100 #CELLS
[2021-10-01 07:09] LABS: POLYCHROMASIA SLIGHT; SCHISTOCYTES FEW; TOXIC GRANULATION SLIGHT
[2021-10-01 20:00] LABS: BASO # 0.1 10*3/uL (0.0-0.1); EOS # 0.4 10*3/uL (0.0-0.4); EOS % 4.9 % (1.0-4.0); HEMATOCRIT 28.3 % (42.0-52.0); LYMPH # 0.9 10*3/uL (1.3-4.4); LYMPH % 10.3 % (27.0-41.0); MEAN CELL VOLUME 92.8 fl (80.0-94.0); MEAN CORPUSCULAR HGB 28.9 pg (27.0-31.0); MEAN CORPUSCULAR HGB CONC 31.1 g/dl (33.0-37.0); MEAN PLATELET VOLUME 9.4 fl (9.6-12.3); MONO % 11.4 % (3.0-9.0); NEUT # 6.2 10*3/uL (2.3-7.9); NEUT % 72.1 % (47.0-73.0); PLATELET COUNT AUTOMATED 427 10*3/uL (130-400); RED BLOOD COUNT 3.05 10*6/uL (4.50-5.90); RED CELL DISTRI WIDTH 14.4 % (0-14.5); WHITE BLOOD COUNT 8.6 10*3/uL (4.8-10.8)
[2021-10-02] VITALS: BP 148/66
[2021-10-02 04:22] VITALS: BP 140/68
[2021-10-02 06:04] LABS: BASO # 0.1 10*3/uL (0.0-0.1); BASO % 0.8 % (0.0-1.0); EOS # 0.5 10*3/uL (0.0-0.4); LYMPH # 0.5 10*3/uL (1.3-4.4); LYMPH % 7.5 % (27.0-41.0); MEAN CELL VOLUME 91.6 fl (80.0-94.0); MEAN CORPUSCULAR HGB 28.9 pg (27.0-31.0); MEAN CORPUSCULAR HGB CONC 31.6 g/dl (33.0-37.0); MEAN PLATELET VOLUME 9.5 fl (9.6-12.3); MONO # 0.8 10*3/uL (0.1-1.0); MONO % 11.2 % (3.0-9.0); NEUT # 5.3 10*3/uL (2.3-7.9); NEUT % 73.1 % (47.0-73.0); PLATELET COUNT AUTOMATED 364 10*3/uL (130-400); RED BLOOD COUNT 2.73 10*6/uL (4.50-5.90); RED CELL DISTRI WIDTH 14.3 % (0-14.5); WHITE BLOOD COUNT 7.2 10*3/uL (4.8-10.8)
[2021-10-02 06:19] LABS: CHLORIDE 107 mmol/L (98-107); POTASSIUM 3.4 mmol/L (3.5-5.1); SODIUM 139 mmol/L (136-145)
[2021-10-02 06:26] LABS: BUN 17 mg/dl (7-24); CREATININE 0.76 mg/dL (0.70-1.30)
[2021-10-02 08:00] VITALS: BP 109/63
[2021-10-02 12:00] VITALS: BP 149/62
[2021-10-02 16:00] VITALS: BP 148/68
[2021-10-02 20:00] VITALS: BP 141/66
[2021-10-03] VITALS: BP 121/55
[2021-10-03 04:05] VITALS: BP 125/58
[2021-10-03 06:10] LABS: BASO # 0.1 10*3/uL (0.0-0.1); BASO % 0.7 % (0.0-1.0); EOS # 0.6 10*3/uL (0.0-0.4); EOS % 7.8 % (1.0-4.0); HEMATOCRIT 24.4 % (42.0-52.0); LYMPH # 1.1 10*3/uL (1.3-4.4); LYMPH % 14.1 % (27.0-41.0); MEAN CELL VOLUME 92.1 fl (80.0-94.0); MEAN CORPUSCULAR HGB 29.4 pg (27.0-31.0); MEAN PLATELET VOLUME 9.4 fl (9.6-12.3); MONO # 0.8 10*3/uL (0.1-1.0); MONO % 10.3 % (3.0-9.0); NEUT % 66.8 % (47.0-73.0); PLATELET COUNT AUTOMATED 422 10*3/uL (130-400); RED BLOOD COUNT 2.65 10*6/uL (4.50-5.90); RED CELL DISTRI WIDTH 14.3 % (0-14.5); WHITE BLOOD COUNT 7.4 10*3/uL (4.8-10.8)
[2021-10-03 06:21] LABS: BUN 20 mg/dl (7-24); CHLORIDE 106 mmol/L (98-107); CREATININE 0.85 mg/dL (0.70-1.30); POTASSIUM 3.9 mmol/L (3.5-5.1); SODIUM 138 mmol/L (136-145)
[2021-10-03 08:00] VITALS: BP 120/61
[2021-10-03 12:03] VITALS: BP 141/60
[2021-10-03 16:00] VITALS: BP 122/65
[2021-10-03 20:00] VITALS: BP 133/59
[2021-10-04] VITALS: BP 120/63
[2021-10-04 04:29] VITALS: BP 128/70
[2021-10-04 08:00] VITALS: BP 139/66
[2021-10-04 12:00] VITALS: BP 136/53
[2021-10-04 16:00] VITALS: BP 154/65
[2021-10-04 20:00] VITALS: BP 131/56
[2021-10-05] VITALS: BP 129/51
[2021-10-05 08:00] VITALS: BP 129/62
[2021-10-05 12:00] VITALS: BP 132/71
[2021-10-05] MEDS ORDERED: PIPERACIL-TAZO4.5 G1 IV (15:16)
[2021-10-05] MEDS ORDERED: Percocet 325 MG1 TAB PO (15:28)
[2021-10-05] MEDS ORDERED: GABAPENTIN600 MG PO (15:28)
[2021-10-05] MEDS ORDERED: METFORMIN HYDR500 MG PO (15:28)
[2021-10-05] MEDS ORDERED: Humalog SQ (15:31)
[2021-10-05 16:00] VITALS: BP 150/58
[2021-10-05 20:00] VITALS: BP 122/50
[2021-10-06] VITALS: BP 150/45
[2021-10-06 08:00] VITALS: BP 126/54
[2021-10-06 12:00] VITALS: BP 146/63
== END 2021-10-06 12:37 | DRG 305 ==
LOC: ED 02:29 → EDHOLD 04:55 → 4E 04:55
PROVIDERS: Emergency Medicine; Internal Medicine; Podiatrist; Student in an Organized Health Care Education/Training Program; ADMIT Family Medicine; ATTEND Family Medicine
PROC: 0Y6N0Z9 Detachment at Left Foot, Partial 1st Ray, Open Approach (ICD-10-PCS; principal; 2021-09-28)
PROC: 0Y6N0ZB Detachment at Left Foot, Partial 2nd Ray, Open Approach (ICD-10-PCS; 2021-09-28)
PROC: 0Y6N0ZC Detachment at Left Foot, Partial 3rd Ray, Open Approach (ICD-10-PCS; 2021-09-28)
PROC: 0Y6N0ZD Detachment at Left Foot, Partial 4th Ray, Open Approach (ICD-10-PCS; 2021-09-28)
PROC: 0Y6N0ZF Detachment at Left Foot, Partial 5th Ray, Open Approach (ICD-10-PCS; 2021-09-28)
PROC: 0LSP0ZZ Reposition Left Lower Leg Tendon, Open Approach (ICD-10-PCS; 2021-09-28)
PROC: 3E0T3BZ Introduction of Anesthetic Agent into Peripheral Nerves and Plexi, Percutaneous Approach (ICD-10-PCS; 2021-09-28)
PROC: 02HV33Z Insertion of Infusion Device into Superior Vena Cava, Percutaneous Approach (ICD-10-PCS; 2021-09-30)
PROC: B548ZZA Ultrasonography of Superior Vena Cava, Guidance (ICD-10-PCS; 2021-09-30)
PROC: 30233N1 Transfusion of Nonautologous Red Blood Cells into Peripheral Vein, Percutaneous Approach (ICD-10-PCS; 2021-10-01)
DX: E11.52 Type 2 diabetes mellitus with diabetic peripheral angiopathy with gangrene (principal); I96 Gangrene, not elsewhere classified; E44.0 Moderate protein-calorie malnutrition; I50.22 Chronic systolic (congestive) heart failure; L03.116 Cellulitis of left lower limb; E11.65 Type 2 diabetes mellitus with hyperglycemia; I25.10 Atherosclerotic heart disease of native coronary artery without angina pectoris; E11.40 Type 2 diabetes mellitus with diabetic neuropathy, unspecified; D75.839 Thrombocytosis, unspecified; D53.9 Nutritional anemia, unspecified; E55.9 Vitamin D deficiency, unspecified; E87.6 Hypokalemia; E11.649 Type 2 diabetes mellitus with hypoglycemia without coma; B96.5 Pseudomonas (aeruginosa) (mallei) (pseudomallei) as the cause of diseases classified elsewhere; E11.69 Type 2 diabetes mellitus with other specified complication; M86.8X7 Other osteomyelitis, ankle and foot; I13.0 Hypertensive heart and chronic kidney disease with heart failure and stage 1 through stage 4 chronic kidney disease, or unspecified chronic kidney disease; E11.22 Type 2 diabetes mellitus with diabetic chronic kidney disease; E87.1 Hypo-osmolality and hyponatremia; N18.30 Chronic kidney disease, stage 3 unspecified; L21.9 Seborrheic dermatitis, unspecified; E78.5 Hyperlipidemia, unspecified; Z79.4 Long term (current) use of insulin; Z88.8 Allergy status to other drugs, medicaments and biological substances; Z91.041 Radiographic dye allergy status; Z89.9 Acquired absence of limb, unspecified; Z95.5 Presence of coronary angioplasty implant and graft; Z83.3 Family history of diabetes mellitus; Z82.49 Family history of ischemic heart disease and other diseases of the circulatory system; Z68.23 Body mass index [BMI] 23.0-23.9, adult

== ENCOUNTER → 2022-01-05 | Outpatient (CLI) | payer OTHER ==
[~2022-01-05] MED LIST changes: +GABAPENTIN600 MG PO; +HUMULIN R100 UNIT/1 IJ; +Humalog SQ; +METFORMIN HYDR500 MG PO; +PIPERACIL-TAZO4.5 G1 IV; +Percocet 325 MG1 TAB PO; +[UNRECOGNIZED DRUG - SUPPLY] MC
[2022-01-05 14:53] LABS: CREATININE 1.77 mg/dL (0.70-1.30); POTASSIUM 4.9 mmol/L (3.5-5.1)
[2022-01-05 16:13] LABS: BASO # 0.1 10*3/uL (0.0-0.1); BASO % 0.5 % (0.0-1.0); EOS % 0.4 % (1.0-4.0); HEMATOCRIT 27.1 % (42.0-52.0); LYMPH # 0.8 10*3/uL (1.3-4.4); LYMPH % 7.9 % (27.0-41.0); MEAN CELL VOLUME 95.4 fl (80.0-94.0); MEAN CORPUSCULAR HGB 29.6 pg (27.0-31.0); MEAN PLATELET VOLUME 9.8 fl (9.6-12.3); MONO % 10.2 % (3.0-9.0); NEUT % 80.5 % (47.0-73.0); PLATELET COUNT AUTOMATED 401 10*3/uL (130-400); RED BLOOD COUNT 2.84 10*6/uL (4.50-5.90)
== END | disposition home or self-care (01) ==
LOC: LAB 14:10
PROVIDERS: ATTEND Surgery
DX: Z01.818 Encounter for other preprocedural examination (principal); I70.25 Atherosclerosis of native arteries of other extremities with ulceration; Z95.1 Presence of aortocoronary bypass graft; J43.9 Emphysema, unspecified

== ENCOUNTER → 2022-03-08 | Day surgery (SDC) | payer OTHER ==
[~2022-03-08] VITALS: Ht 162.5 cm; Wt 58.1 kg
[~2022-03-08] MED LIST changes: +B-12500 MC1 PO; +DOXYCYCLINE HYC PO; +TRAMADOL HCL50 MG PO
[2022-03-08 06:59] VITALS: BP 161/56
[2022-03-08 08:24] VITALS: BP 116/52
[2022-03-08 08:39] VITALS: BP 122/50
[2022-03-08 08:54] VITALS: BP 106/55
[2022-03-08 09:09] VITALS: BP 158/58
[2022-03-09 12:07] LABS: ACID FAST SPEC PROCESSING Tissue Grinding (.)
[2022-03-09 12:07] LABS: ACID FAST SPEC PROCESSING Tissue Grinding (.)
[2022-03-09 12:07] LABS: ACID FAST SPEC PROCESSING Tissue Grinding (.)
== END | disposition home or self-care (01) ==
LOC: SDC 03-03 08:45
PROVIDERS: ATTEND Podiatrist Foot & Ankle Surgery
DX: S91.302A Unspecified open wound, left foot, initial encounter (principal); S91.301A Unspecified open wound, right foot, initial encounter; E11.621 Type 2 diabetes mellitus with foot ulcer; E11.51 Type 2 diabetes mellitus with diabetic peripheral angiopathy without gangrene; I10 Essential (primary) hypertension; I25.10 Atherosclerotic heart disease of native coronary artery without angina pectoris; Z95.5 Presence of coronary angioplasty implant and graft; I25.2 Old myocardial infarction; M19.90 Unspecified osteoarthritis, unspecified site; Z95.1 Presence of aortocoronary bypass graft; Z89.422 Acquired absence of other left toe(s); Z87.891 Personal history of nicotine dependence; E78.00 Pure hypercholesterolemia, unspecified; Z79.899 Other long term (current) drug therapy; F33.0 Major depressive disorder, recurrent, mild; X58.XXXA Exposure to other specified factors, initial encounter; Y93.89 Activity, other specified; Y92.89 Other specified places as the place of occurrence of the external cause; Y99.8 Other external cause status

== ENCOUNTER → 2022-03-16 | Day surgery (SDC) | payer OTHER ==
[~2022-03-16] VITALS: Ht 162.5 cm; Wt 58.1 kg
[2022-03-16 07:21] VITALS: BP 111/58
[2022-03-16 07:57] VITALS: BP 99/28
[2022-03-16 08:12] VITALS: BP 100/34
[2022-03-16 08:27] VITALS: BP 125/50
[2022-03-16 10:38] VITALS: BP 99/28
== END | disposition home or self-care (01) ==
LOC: SDC 02-28 08:00
PROVIDERS: ATTEND Surgery
DX: D53.9 Nutritional anemia, unspecified (principal); I96 Gangrene, not elsewhere classified; K92.2 Gastrointestinal hemorrhage, unspecified; I10 Essential (primary) hypertension; I25.10 Atherosclerotic heart disease of native coronary artery without angina pectoris; I25.2 Old myocardial infarction; E11.9 Type 2 diabetes mellitus without complications; Z95.0 Presence of cardiac pacemaker; Z87.891 Personal history of nicotine dependence; Z89.422 Acquired absence of other left toe(s); Z95.1 Presence of aortocoronary bypass graft; Z79.899 Other long term (current) drug therapy

== ENCOUNTER → 2022-03-17 | Outpatient (CLI) | payer OTHER ==
[2022-03-17 15:39] LABS: HEMATOCRIT 25.4 % (42.0-52.0); MEAN CORPUSCULAR HGB 30.2 pg (27.0-31.0); MEAN CORPUSCULAR HGB CONC 29.9 g/dl (33.0-37.0); MEAN PLATELET VOLUME 8.7 fl (9.6-12.3); RED BLOOD COUNT 2.52 10*6/uL (4.50-5.90); RED CELL DISTRI WIDTH 15.4 % (0-14.5); WHITE BLOOD COUNT 7.1 10*3/uL (4.8-10.8)
[2022-03-17 15:42] LABS: MEAN CELL VOLUME 100.8 fl (80.0-94.0)
== END | disposition home or self-care (01) ==
LOC: LAB 15:21
PROVIDERS: ATTEND Physician Assistant
DX: D64.9 Anemia, unspecified (principal)

== ENCOUNTER → 2022-06-07 | Day surgery (SDC) | payer OTHER ==
[~2022-06-07] VITALS: Ht 162.5 cm; Wt 58.1 kg
[~2022-06-07] MED LIST changes: +Carafate1 GM PO; +ZYVOX600 MG PO
[2022-06-07 07:05] VITALS: BP 159/63
[2022-06-07 08:40] VITALS: BP 144/58
[2022-06-07 08:55] VITALS: BP 140/57
[2022-06-07 09:10] VITALS: BP 142/50
[2022-06-07 09:25] VITALS: BP 143/54
[2022-06-07 09:34] VITALS: BP 150/62
[2022-06-08 09:07] LABS: ACID FAST SPEC PROCESSING Tissue Grinding (.)
[2022-06-08 09:07] LABS: ACID FAST SPEC PROCESSING Tissue Grinding (.)
== END | disposition home or self-care (01) ==
LOC: SDC 05-26 12:30
PROVIDERS: ATTEND Podiatrist Foot & Ankle Surgery
DX: S91.302A Unspecified open wound, left foot, initial encounter (principal); S91.301A Unspecified open wound, right foot, initial encounter; M86.172 Other acute osteomyelitis, left ankle and foot; M86.672 Other chronic osteomyelitis, left ankle and foot; I10 Essential (primary) hypertension; E11.9 Type 2 diabetes mellitus without complications; I25.10 Atherosclerotic heart disease of native coronary artery without angina pectoris; M19.90 Unspecified osteoarthritis, unspecified site; Z95.0 Presence of cardiac pacemaker; Z95.5 Presence of coronary angioplasty implant and graft; X58.XXXA Exposure to other specified factors, initial encounter; Y93.89 Activity, other specified; Y92.89 Other specified places as the place of occurrence of the external cause; Y99.8 Other external cause status

== ENCOUNTER → 2022-06-09 | Outpatient (CLI) | payer OTHER ==
[2022-06-09] VITALS (7 sets, daily range): BP systolic 100–123; BP diastolic 40–57
[2022-06-09 11:21] LABS: HEMATOCRIT 23.8 % (42.0-52.0); MEAN CELL VOLUME 95.6 fl (80.0-94.0); MEAN CORPUSCULAR HGB 29.7 pg (27.0-31.0); MEAN CORPUSCULAR HGB CONC 31.1 g/dl (33.0-37.0); MEAN PLATELET VOLUME 9.8 fl (9.6-12.3); RED BLOOD COUNT 2.49 10*6/uL (4.50-5.90); RED CELL DISTRI WIDTH 15.6 % (0-14.5)
[2022-06-09 15:54] LABS: BASO % 0.6 % (0.0-1.0); EOS # 0.1 10*3/uL (0.0-0.4); EOS % 2.7 % (1.0-4.0); HEMATOCRIT 26.7 % (42.0-52.0); LYMPH # 0.7 10*3/uL (1.3-4.4); LYMPH % 14.3 % (27.0-41.0); MEAN CORPUSCULAR HGB 28.9 pg (27.0-31.0); MEAN CORPUSCULAR HGB CONC 31.1 g/dl (33.0-37.0); MEAN PLATELET VOLUME 9.7 fl (9.6-12.3); MONO # 0.7 10*3/uL (0.1-1.0); MONO % 12.7 % (3.0-9.0); NEUT # 3.6 10*3/uL (2.3-7.9); NEUT % 69.5 % (47.0-73.0); PLATELET COUNT AUTOMATED 228 10*3/uL (130-400); RED BLOOD COUNT 2.87 10*6/uL (4.50-5.90); RED CELL DISTRI WIDTH 16.4 % (0-14.5); WHITE BLOOD COUNT 5.2 10*3/uL (4.8-10.8)
== END | disposition home or self-care (01) ==
LOC: TRNFUSION 10:30
PROVIDERS: ATTEND Physician Assistant
DX: D64.9 Anemia, unspecified (principal)

== ENCOUNTER → 2022-06-16 | Outpatient (CLI) | payer OTHER ==
[2022-06-16] VITALS (9 sets, daily range): BP systolic 148–163; BP diastolic 62–91
[2022-06-16 14:43] LABS: HEMATOCRIT 29.1 % (42.0-52.0); MEAN CELL VOLUME 93.9 fl (80.0-94.0); MEAN CORPUSCULAR HGB 29.7 pg (27.0-31.0); MEAN CORPUSCULAR HGB CONC 31.6 g/dl (33.0-37.0); MEAN PLATELET VOLUME 9.2 fl (9.6-12.3); RED BLOOD COUNT 3.1 10*6/uL (4.50-5.90); RED CELL DISTRI WIDTH 15.1 % (0-14.5); WHITE BLOOD COUNT 7.7 10*3/uL (4.8-10.8)
== END | disposition home or self-care (01) ==
LOC: TRNFUSION 08:30 → LAB 10:02 → TRNFUSION 10:02
PROVIDERS: ATTEND Physician Assistant
DX: D64.9 Anemia, unspecified (principal); I10 Essential (primary) hypertension; I25.10 Atherosclerotic heart disease of native coronary artery without angina pectoris; I25.2 Old myocardial infarction; E78.00 Pure hypercholesterolemia, unspecified; E10.9 Type 1 diabetes mellitus without complications; M19.90 Unspecified osteoarthritis, unspecified site; G89.29 Other chronic pain; M54.9 Dorsalgia, unspecified; Z79.4 Long term (current) use of insulin; Z95.5 Presence of coronary angioplasty implant and graft; Z95.1 Presence of aortocoronary bypass graft; Z95.0 Presence of cardiac pacemaker; Z87.891 Personal history of nicotine dependence

== ENCOUNTER → 2022-06-27 | Outpatient (CLI) | payer OTHER ==
[2022-06-27] VITALS (8 sets, daily range): BP systolic 126–157; BP diastolic 61–68
[2022-06-27 13:02] LABS: BASO # 0.1 10*3/uL (0.0-0.1); BASO % 1.2 % (0.0-1.0); EOS # 0.2 10*3/uL (0.0-0.4); EOS % 2.8 % (1.0-4.0); LYMPH # 0.8 10*3/uL (1.3-4.4); LYMPH % 11.3 % (27.0-41.0); MEAN CELL VOLUME 92.5 fl (80.0-94.0); MEAN CORPUSCULAR HGB CONC 31.3 g/dl (33.0-37.0); MONO # 0.9 10*3/uL (0.1-1.0); MONO % 13.2 % (3.0-9.0); NEUT # 4.8 10*3/uL (2.3-7.9); NEUT % 70.8 % (47.0-73.0); PLATELET COUNT AUTOMATED 571 10*3/uL (130-400); RED BLOOD COUNT 3.35 10*6/uL (4.50-5.90); WHITE BLOOD COUNT 6.8 10*3/uL (4.8-10.8)
== END | disposition home or self-care (01) ==
LOC: TRNFUSION 01:24
PROVIDERS: ATTEND Physician Assistant
DX: D64.9 Anemia, unspecified (principal); I10 Essential (primary) hypertension; E11.9 Type 2 diabetes mellitus without complications; I25.10 Atherosclerotic heart disease of native coronary artery without angina pectoris; E78.00 Pure hypercholesterolemia, unspecified; M19.90 Unspecified osteoarthritis, unspecified site; G89.29 Other chronic pain; Z79.4 Long term (current) use of insulin; Z95.1 Presence of aortocoronary bypass graft; Z87.891 Personal history of nicotine dependence; Z98.890 Other specified postprocedural states

== ENCOUNTER → 2022-07-13 | Outpatient (CLI) | payer OTHER ==
[2022-07-13 14:20] VITALS: BP 149/56
[2022-07-13 14:55] VITALS: BP 131/49
[2022-07-13 15:55] VITALS: BP 117/53
[2022-07-13 16:55] VITALS: BP 118/59
[2022-07-13 17:35] VITALS: BP 139/66
[2022-07-13 17:53] LABS: HEMATOCRIT 26.7 % (42.0-52.0); MEAN CORPUSCULAR HGB 29.2 pg (27.0-31.0); MEAN CORPUSCULAR HGB CONC 30.7 g/dl (33.0-37.0); MEAN PLATELET VOLUME 9.8 fl (9.6-12.3); RED BLOOD COUNT 2.81 10*6/uL (4.50-5.90); RED CELL DISTRI WIDTH 16.6 % (0-14.5); WHITE BLOOD COUNT 9.5 10*3/uL (4.8-10.8)
== END | disposition home or self-care (01) ==
LOC: TRNFUSION 12:35
PROVIDERS: ATTEND Physician Assistant
DX: D64.9 Anemia, unspecified (principal)

== ENCOUNTER → 2022-07-14 | Outpatient (CLI) | payer OTHER ==
[2022-07-14] VITALS (8 sets, daily range): BP systolic 110–155; BP diastolic 32–56
[2022-07-14 13:57] LABS: BASO # 0.1 10*3/uL (0.0-0.1); BASO % 0.8 % (0.0-1.0); EOS # 0.1 10*3/uL (0.0-0.4); HEMATOCRIT 28.8 % (42.0-52.0); LYMPH # 0.7 10*3/uL (1.3-4.4); LYMPH % 7.3 % (27.0-41.0); MEAN CELL VOLUME 94.4 fl (80.0-94.0); MEAN CORPUSCULAR HGB 29.5 pg (27.0-31.0); MEAN CORPUSCULAR HGB CONC 31.3 g/dl (33.0-37.0); MEAN PLATELET VOLUME 9.9 fl (9.6-12.3); MONO # 0.7 10*3/uL (0.1-1.0); MONO % 7.1 % (3.0-9.0); NEUT # 8.2 10*3/uL (2.3-7.9); NEUT % 83.3 % (47.0-73.0); PLATELET COUNT AUTOMATED 346 10*3/uL (130-400); RED BLOOD COUNT 3.05 10*6/uL (4.50-5.90); RED CELL DISTRI WIDTH 16.7 % (0-14.5); WHITE BLOOD COUNT 9.9 10*3/uL (4.8-10.8)
== END | disposition home or self-care (01) ==
LOC: TRNFUSION 08:30
PROVIDERS: ATTEND Physician Assistant
DX: D64.9 Anemia, unspecified (principal)

== ENCOUNTER → 2022-07-25 | Outpatient (CLI) | payer OTHER ==
[2022-07-25] VITALS (9 sets, daily range): BP systolic 117–157; BP diastolic 45–56
[~2022-07-25] MED LIST changes: +TRAMADOL HCL100 MG PO; +XARELTO10 MG PO
[2022-07-25 18:25] LABS: BASO % 0.6 % (0.0-1.0); EOS # 0.2 10*3/uL (0.0-0.4); EOS % 2.7 % (1.0-4.0); HEMATOCRIT 27.3 % (42.0-52.0); LYMPH # 1.1 10*3/uL (1.3-4.4); LYMPH % 15.7 % (27.0-41.0); MEAN CELL VOLUME 99.3 fl (80.0-94.0); MEAN CORPUSCULAR HGB 29.1 pg (27.0-31.0); MEAN CORPUSCULAR HGB CONC 29.3 g/dl (33.0-37.0); MEAN PLATELET VOLUME 9.4 fl (9.6-12.3); MONO # 0.6 10*3/uL (0.1-1.0); MONO % 8.1 % (3.0-9.0); NEUT % 72.6 % (47.0-73.0); PLATELET COUNT AUTOMATED 412 10*3/uL (130-400); RED BLOOD COUNT 2.75 10*6/uL (4.50-5.90); WHITE BLOOD COUNT 6.9 10*3/uL (4.8-10.8)
== END | disposition home or self-care (01) ==
LOC: TRNFUSION 14:02
PROVIDERS: ATTEND Physician Assistant
DX: D63.8 Anemia in other chronic diseases classified elsewhere (principal); I10 Essential (primary) hypertension; I25.10 Atherosclerotic heart disease of native coronary artery without angina pectoris; I25.2 Old myocardial infarction; E10.9 Type 1 diabetes mellitus without complications; M19.90 Unspecified osteoarthritis, unspecified site; F17.210 Nicotine dependence, cigarettes, uncomplicated; Z95.1 Presence of aortocoronary bypass graft; Z89.422 Acquired absence of other left toe(s); Z95.5 Presence of coronary angioplasty implant and graft; Z95.0 Presence of cardiac pacemaker

== ENCOUNTER → 2022-07-26 | Day surgery (SDC) | payer OTHER ==
[2022-07-22 09:57] LABS: HEMATOCRIT 25.5 % (42.0-52.0); MEAN CELL VOLUME 102.4 fl (80.0-94.0); MEAN CORPUSCULAR HGB 31.3 pg (27.0-31.0); MEAN CORPUSCULAR HGB CONC 30.6 g/dl (33.0-37.0); MEAN PLATELET VOLUME 9.4 fl (9.6-12.3); RED BLOOD COUNT 2.49 10*6/uL (4.50-5.90); RED CELL DISTRI WIDTH 18.8 % (0-14.5); WHITE BLOOD COUNT 8.7 10*3/uL (4.8-10.8)
[2022-07-26] VITALS (7 sets, daily range): BP systolic 115–155; BP diastolic 37–71
[~2022-07-26] VITALS: Ht 162.5 cm; Wt 59.0 kg
[2022-07-27 09:07] LABS: ACID FAST SPEC PROCESSING Tissue Grinding (.)
[2022-07-27 09:07] LABS: ACID FAST SPEC PROCESSING Tissue Grinding (.)
== END | disposition home or self-care (01) ==
LOC: SDC 07-21 13:15 → LAB 07-22 09:20 → SDC 01:16 → LAB 07:30 → SDC 09:00
PROVIDERS: Physician Assistant; Podiatrist Foot & Ankle Surgery; ATTEND Podiatrist Foot & Ankle Surgery
DX: S91.302A Unspecified open wound, left foot, initial encounter (principal); S91.301A Unspecified open wound, right foot, initial encounter; E11.621 Type 2 diabetes mellitus with foot ulcer; L97.519 Non-pressure chronic ulcer of other part of right foot with unspecified severity; E11.51 Type 2 diabetes mellitus with diabetic peripheral angiopathy without gangrene; G89.29 Other chronic pain; I10 Essential (primary) hypertension; I25.10 Atherosclerotic heart disease of native coronary artery without angina pectoris; I25.2 Old myocardial infarction; Z95.1 Presence of aortocoronary bypass graft; Z95.0 Presence of cardiac pacemaker; Z89.422 Acquired absence of other left toe(s); E78.00 Pure hypercholesterolemia, unspecified; X58.XXXA Exposure to other specified factors, initial encounter; Y93.89 Activity, other specified; Y92.89 Other specified places as the place of occurrence of the external cause; Y99.8 Other external cause status

== ENCOUNTER → 2022-08-04 | Outpatient (CLI) | payer OTHER ==
[2022-08-04] VITALS (14 sets, daily range): BP systolic 101–133; BP diastolic 30–59
[2022-08-04 14:39] LABS: BASO % 0.5 % (0.0-1.0); EOS # 0.1 10*3/uL (0.0-0.4); EOS % 0.8 % (1.0-4.0); HEMATOCRIT 27.1 % (42.0-52.0); LYMPH # 0.6 10*3/uL (1.3-4.4); LYMPH % 7.4 % (27.0-41.0); MEAN CORPUSCULAR HGB 30.9 pg (27.0-31.0); MEAN CORPUSCULAR HGB CONC 32.5 g/dl (33.0-37.0); MEAN PLATELET VOLUME 9.5 fl (9.6-12.3); MONO # 0.6 10*3/uL (0.1-1.0); MONO % 7.8 % (3.0-9.0); NEUT # 6.4 10*3/uL (2.3-7.9); NEUT % 83.1 % (47.0-73.0); PLATELET COUNT AUTOMATED 351 10*3/uL (130-400); RED BLOOD COUNT 2.85 10*6/uL (4.50-5.90); RED CELL DISTRI WIDTH 17.2 % (0-14.5); WHITE BLOOD COUNT 7.7 10*3/uL (4.8-10.8)
[2022-08-04 14:40] LABS: MEAN CELL VOLUME 95.1 fl (80.0-94.0)
== END | disposition home or self-care (01) ==
LOC: TRNFUSION 01:34
PROVIDERS: ATTEND Physician Assistant
DX: D64.9 Anemia, unspecified (principal); I10 Essential (primary) hypertension; I25.10 Atherosclerotic heart disease of native coronary artery without angina pectoris; I25.2 Old myocardial infarction; E10.9 Type 1 diabetes mellitus without complications; M19.90 Unspecified osteoarthritis, unspecified site; E78.00 Pure hypercholesterolemia, unspecified; G89.29 Other chronic pain; M54.9 Dorsalgia, unspecified; Z95.0 Presence of cardiac pacemaker; Z95.1 Presence of aortocoronary bypass graft; Z95.5 Presence of coronary angioplasty implant and graft; Z79.4 Long term (current) use of insulin

== ENCOUNTER → 2022-08-24 | Outpatient (CLI) | payer OTHER ==
[~2022-08-24] MED LIST changes: +FUROSEMIDE40 MG PO; +LISINOPRIL40 MG PO; +VITAMIN C500 M6 PO; +XARELTO20 M1 PO
== END | disposition home or self-care (01) ==
LOC: US 08-15 14:30
PROVIDERS: ATTEND Physician Assistant
DX: R22.1 Localized swelling, mass and lump, neck (principal)

== ENCOUNTER → 2022-09-25 | Outpatient (CLI) | payer OTHER | LOC: US 01:38 | PROVIDERS: ATTEND Internal Medicine Cardiovascular Disease | DX: E11.9 Type 2 diabetes mellitus without complications (principal); Z95.828 Presence of other vascular implants and grafts; I10 Essential (primary) hypertension; G47.62 Sleep related leg cramps; L98.499 Non-pressure chronic ulcer of skin of other sites with unspecified severity; I51.9 Heart disease, unspecified; Z87.891 Personal history of nicotine dependence; M79.662 Pain in left lower leg; M79.661 Pain in right lower leg ==

== ENCOUNTER 2022-10-03 13:55 | Inpatient (IN) | payer OTHER ==
[~2022-10-03] VITALS: Ht 170.2 cm; Wt 61.0 kg
[2022-10-03 14:00] VITALS: BP 158/53
[2022-10-03 14:36] LABS: BASO # 0.1 10*3/uL (0.0-0.1); EOS % 10.5 % (1.0-4.0); HEMATOCRIT 30.5 % (42.0-52.0); LYMPH # 1.9 10*3/uL (1.3-4.4); LYMPH % 19.8 % (27.0-41.0); MEAN CELL VOLUME 94.1 fl (80.0-94.0); MEAN CORPUSCULAR HGB CONC 30.8 g/dl (33.0-37.0); MEAN PLATELET VOLUME 10.5 fl (9.6-12.3); MONO # 1.1 10*3/uL (0.1-1.0); MONO % 11.3 % (3.0-9.0); NEUT # 5.6 10*3/uL (2.3-7.9); PLATELET COUNT AUTOMATED 298 10*3/uL (130-400); RED BLOOD COUNT 3.24 10*6/uL (4.50-5.90); RED CELL DISTRI WIDTH 17.1 % (0-14.5); WHITE BLOOD COUNT 9.8 10*3/uL (4.8-10.8)
[2022-10-03 14:55] LABS: ACT PARTIAL THROMBO TIME 28.9 SECONDS (20.0-32.1); INTERNATIONAL NORM RATIO 1.1 (2.0-3.5)
[2022-10-03 14:57] LABS: ALKALINE PHOSPHATASE 63 U/L (46-116); BUN 38 mg/dl (9-23); CHLORIDE 111 mmol/L (98-107); LIPASE 37 U/L (12-53); POTASSIUM 3.8 mmol/L (3.4-5.1); TOTAL PROTEIN 6.9 gm/dL (6.0-8.0)
[2022-10-03 14:59] LABS: SGPT/ALT < 7 U/L (10-49)
[2022-10-03 16:58] LABS: BILIRUBIN Negative (Negative); BLOOD 1+ (Negative); CLARITY Clear (Clear); COLOR Yellow (Yellow); GLUCOSE Negative (Negative); KETONE Trace (Negative); LEUKO ESTERASE Negative (Negative); NITRITE Negative (Negative); SPECIFIC GRAVITY 1.015 (1.001-1.030); UROBILINOGEN 0.2 E.U./dl (0.0-1.0)
[2022-10-03 17:08] LABS: RBC 0-2 rbc/hpf (0-2); WBC 0-2 wbc/hpf (0-5)
[2022-10-03 17:09] LABS: BACTERIA 1+; EPITHELIAL CELLS 0-2
[2022-10-03 19:33] VITALS: BP 128/47
[2022-10-03 19:51] VITALS: BP 149/56
[2022-10-03 21:10] VITALS: BP 161/93
[2022-10-04] VITALS: BP 155/60
[2022-10-04 07:26] LABS: BASO # 0.1 10*3/uL (0.0-0.1); BASO % 0.8 % (0.0-1.0); EOS # 0.5 10*3/uL (0.0-0.4); EOS % 7.5 % (1.0-4.0); HEMATOCRIT 29.6 % (42.0-52.0); LYMPH # 0.7 10*3/uL (1.3-4.4); LYMPH % 9.7 % (27.0-41.0); MEAN CORPUSCULAR HGB 29.2 pg (27.0-31.0); MEAN CORPUSCULAR HGB CONC 31.1 g/dl (33.0-37.0); MEAN PLATELET VOLUME 10.8 fl (9.6-12.3); MONO # 0.9 10*3/uL (0.1-1.0); MONO % 12.1 % (3.0-9.0); NEUT % 69.5 % (47.0-73.0); PLATELET COUNT AUTOMATED 257 10*3/uL (130-400); RED BLOOD COUNT 3.15 10*6/uL (4.50-5.90); RED CELL DISTRI WIDTH 17.1 % (0-14.5); WHITE BLOOD COUNT 7.2 10*3/uL (4.8-10.8)
[2022-10-04 08:00] VITALS: BP 137/94
[2022-10-04 08:03] LABS: ALKALINE PHOSPHATASE 62 U/L (46-116); BUN 39 mg/dl (9-23); CHLORIDE 108 mmol/L (98-107); FREE T4 0.92 ng/dl (0.89-1.76); POTASSIUM 4.2 mmol/L (3.4-5.1); SGPT/ALT < 7 U/L (10-49); TOTAL PROTEIN 6.6 gm/dL (6.0-8.0)
[2022-10-04 12:00] VITALS: BP 137/53
[2022-10-04 16:00] VITALS: BP 140/50
[2022-10-04 20:00] VITALS: BP 148/75
[2022-10-05] VITALS: BP 140/68
[2022-10-05 06:57] LABS: POTASSIUM 4.3 mmol/L (3.4-5.1)
[2022-10-05 08:00] VITALS: BP 146/69
[2022-10-05 12:00] VITALS: BP 155/69
[2022-10-05] MEDS ORDERED: NEURONTIN100 MG PO (14:33)
== END 2022-10-05 15:47 | disposition home health service (06) | DRG 380 ==
LOC: ED 13:55 → EDHOLD 16:04 → 5E 16:04
PROVIDERS: Emergency Medicine; Internal Medicine; ADMIT Internal Medicine; ATTEND Internal Medicine
DX: E11.649 Type 2 diabetes mellitus with hypoglycemia without coma (principal); N17.0 Acute kidney failure with tubular necrosis; G93.41 Metabolic encephalopathy; I25.10 Atherosclerotic heart disease of native coronary artery without angina pectoris; Z66 Do not resuscitate; K21.9 Gastro-esophageal reflux disease without esophagitis; E11.51 Type 2 diabetes mellitus with diabetic peripheral angiopathy without gangrene; E11.40 Type 2 diabetes mellitus with diabetic neuropathy, unspecified; E78.5 Hyperlipidemia, unspecified; D53.9 Nutritional anemia, unspecified; E87.8 Other disorders of electrolyte and fluid balance, not elsewhere classified; E44.0 Moderate protein-calorie malnutrition; N14.19 Nephropathy induced by other drugs, medicaments and biological substances; T36.8X5A Adverse effect of other systemic antibiotics, initial encounter; I50.32 Chronic diastolic (congestive) heart failure; I11.0 Hypertensive heart disease with heart failure; E11.621 Type 2 diabetes mellitus with foot ulcer; L97.519 Non-pressure chronic ulcer of other part of right foot with unspecified severity; Z82.49 Family history of ischemic heart disease and other diseases of the circulatory system; Z79.4 Long term (current) use of insulin; Z83.3 Family history of diabetes mellitus; Z95.5 Presence of coronary angioplasty implant and graft; Z95.1 Presence of aortocoronary bypass graft; Z89.432 Acquired absence of left foot; Z90.49 Acquired absence of other specified parts of digestive tract; Z88.8 Allergy status to other drugs, medicaments and biological substances; Z91.041 Radiographic dye allergy status

== ENCOUNTER → 2022-12-14 | Outpatient (CLI) | payer OTHER ==
[~2022-12-14] MED LIST changes: +NEURONTIN100 MG PO
== END | disposition home or self-care (01) ==
LOC: US 12:37
PROVIDERS: ATTEND Physician Assistant
DX: R22.1 Localized swelling, mass and lump, neck (principal)

== ENCOUNTER → 2023-01-27 | Outpatient (CLI) | payer OTHER | END | disposition home or self-care (01) | LOC: CT 01:10 | PROVIDERS: ATTEND Physician Assistant | DX: R22.1 Localized swelling, mass and lump, neck (principal) ==

== ENCOUNTER → 2023-08-31 | Outpatient (CLI) | payer OTHER, MEDICAID ==
[2023-08-31 15:18] LABS: HEMATOCRIT 37.3 % (42.0-52.0); MEAN CELL VOLUME 98.2 fl (80.0-94.0); MEAN CORPUSCULAR HGB 30.3 pg (27.0-31.0); MEAN CORPUSCULAR HGB CONC 30.8 g/dl (33.0-37.0); MEAN PLATELET VOLUME 10.7 fl (9.6-12.3); RED BLOOD COUNT 3.8 10*6/uL (4.50-5.90); RED CELL DISTRI WIDTH 13.7 % (0-14.5); WHITE BLOOD COUNT 5.5 10*3/uL (4.8-10.8)
[2023-08-31 15:44] LABS: ALKALINE PHOSPHATASE 54 U/L (46-116); BUN 30 mg/dl (9-23); CHLORIDE 110 mmol/L (98-107); POTASSIUM 5.8 mmol/L (3.4-5.1); TOTAL PROTEIN 6.9 gm/dL (6.0-8.0)
[2023-08-31 15:45] LABS: SGPT/ALT < 7 U/L (5-49)
== END | disposition home or self-care (01) ==
LOC: LAB 14:35 → CT 15:00
PROVIDERS: ATTEND Physician Assistant
DX: Z12.2 Encounter for screening for malignant neoplasm of respiratory organs (principal); I10 Essential (primary) hypertension; E11.9 Type 2 diabetes mellitus without complications; D63.8 Anemia in other chronic diseases classified elsewhere; F17.201 Nicotine dependence, unspecified, in remission; R91.1 Solitary pulmonary nodule; J43.9 Emphysema, unspecified; I25.10 Atherosclerotic heart disease of native coronary artery without angina pectoris; E27.8 Other specified disorders of adrenal gland; I51.7 Cardiomegaly

== ENCOUNTER → 2024-09-04 | Outpatient (CLI) | payer OTHER | END | disposition home or self-care (01) | LOC: CT 14:36 | PROVIDERS: ATTEND Physician Assistant | DX: Z12.2 Encounter for screening for malignant neoplasm of respiratory organs (principal); J43.9 Emphysema, unspecified; I25.10 Atherosclerotic heart disease of native coronary artery without angina pectoris; J98.11 Atelectasis; R91.8 Other nonspecific abnormal finding of lung field; Z87.891 Personal history of nicotine dependence ==

== ENCOUNTER 2024-11-20 16:44 | Emergency (ER) | payer OTHER ==
[~2024-11-20] VITALS: Ht 162.5 cm; Wt 59.9 kg
[2024-11-20 17:44] VITALS: BP 171/80
[2024-11-20] MEDS ORDERED: Acetaminophen/Oxycodone 5 MG/325 MG TABLET PO ONE (17:55)
[2024-11-20] MEDS ORDERED: TRAMADOL HCL50 MG PO (18:33)
== END 2024-11-20 19:08 | disposition home or self-care (01) ==
LOC: ED 16:44
DX: S63.501A Unspecified sprain of right wrist, initial encounter (principal); S53.401A Unspecified sprain of right elbow, initial encounter; S40.011A Contusion of right shoulder, initial encounter; I10 Essential (primary) hypertension; E78.5 Hyperlipidemia, unspecified; Z91.041 Radiographic dye allergy status; Z88.8 Allergy status to other drugs, medicaments and biological substances; Z79.899 Other long term (current) drug therapy; Z79.4 Long term (current) use of insulin; Z89.422 Acquired absence of other left toe(s); Z90.49 Acquired absence of other specified parts of digestive tract; Z95.5 Presence of coronary angioplasty implant and graft; Z95.0 Presence of cardiac pacemaker; Z87.891 Personal history of nicotine dependence; W18.39XA Other fall on same level, initial encounter; Y93.89 Activity, other specified; Y92.89 Other specified places as the place of occurrence of the external cause; Y99.8 Other external cause status